=== PATIENT | female | born 1970 | race Caucasian/White ===

== ENCOUNTER → 2021-08-04 | Outpatient (CLI) | payer SELFPAY ==
[2021-08-20 09:18] LABS: Stool Occult Bld Immuno 1 Negative (NEGATIVE)
== END | disposition home or self-care (01) ==
LOC: LAB SHORT 12:00
PROVIDERS: Nurse Practitioner Family
DX: Z12.11 Encounter for screening for malignant neoplasm of colon (principal)
CPT/HCPCS: G0328

== ENCOUNTER → 2023-01-10 | Outpatient (CLI) | payer BC ==
[2023-01-11 16:07] LABS: HPV 16 Negative (Negative); HPV 18 Negative (Negative); HPV OTHER HR TYPES Negative (Negative)
== END ==
LOC: LAB 13:58 → LAB SHORT 13:58
PROVIDERS: Obstetrics & Gynecology
DX: Z01.419 Encounter for gynecological examination (general) (routine) without abnormal findings (principal)
CPT/HCPCS: 87624; G0145

== ENCOUNTER 2023-02-02 08:44 | Day surgery (SDC) | payer BC ==
[~2023-02-02] VITALS: Ht 165.1 cm; Wt 101.9 kg
[2023-02-02] MEDS ORDERED: SKYRIZI150 MG/1 M (09:54)
[2023-02-02] MEDS ORDERED: ORAL BIRTH CONTROL (09:56)
[2023-02-02 11:29] VITALS: BP 131/98
== END 2023-02-02 11:45 | disposition home or self-care (01) ==
LOC: ORSCSDS 08:44 → ORD 10:00 → ORSCSDS 10:00
PROVIDERS: Internal Medicine Gastroenterology
PROC: 0DJD8ZZ Inspection of Lower Intestinal Tract, Via Natural or Artificial Opening Endoscopic (ICD-10-PCS; principal; 2023-02-02 10:00)
DX: Z12.11 Encounter for screening for malignant neoplasm of colon (principal); R00.0 Tachycardia, unspecified; I10 Essential (primary) hypertension; E66.9 Obesity, unspecified; Z68.37 Body mass index [BMI] 37.0-37.9, adult; Z79.3 Long term (current) use of hormonal contraceptives; Z79.899 Other long term (current) drug therapy
CPT/HCPCS: 93005; 93010; J2250; J2704; J7120

== ENCOUNTER → 2025-04-05 | Outpatient (CLI) | payer OTHER ==
[~2025-04-05] MED LIST: ORAL BIRTH CONTROL; SKYRIZI150 MG/1 M
[2025-04-05 14:43] LABS: Source, Urine Clean Catch
[2025-04-05 16:17] LABS: Bilirubin, Urine Neg (Neg); Color, Urine Yellow (P-Yellow); Glucose Qualitative, Urine Neg (Neg); Ketones, Urine Neg (Neg); Leukocyte Esterase, Urine Neg (Neg); Protein, Urine Neg (Neg); Specific Gravity, Urine 1.010 (1.003-1.022); Urobilinogen, Urine NORM (Normal)
== END ==
LOC: LAB SHORT 14:40 → LAB 14:40
PROVIDERS: Obstetrics & Gynecology
DX: R39.9 Unspecified symptoms and signs involving the genitourinary system (principal)
CPT/HCPCS: 81003